=== PATIENT | male | born 1945 | race Caucasian/White ===

== ENCOUNTER 2017-02-04 10:45 | Emergency (ER) | payer MEDICARE ==
--- NOTE | 2017-02-04 12:22 | DIAGNOSTIC IMAGING REPORT ---
PROCEDURE: XR CHEST 2 VIEW INDICATION: CHEST PAIN TECHNIQUE: PA and lateral view. COMPARISON: None. FINDINGS: 2 cm right upper lobe opacity. Cardiovascular structures are normal. Chronic mild L1 compression fracture. IMPRESSION: 1. 2.0 cm right upper lobe pulmonary nodule. Recommend CT scan with contrast. 2. Results discussed with Dr. Bernardo
--- NOTE | 2017-02-04 13:57 | DIAGNOSTIC IMAGING REPORT ---
PROCEDURE: CTA THORAX WITH CONTRAST INDICATION: SHORTNESS OF BREATH TECHNIQUE: 84 ml of Isovue 370 was injected intravenously and axial images were obtained of the entire thorax with 3D sagittal and coronal MIP reconstructions. COMPARISON: Chest x-ray 02/04/2017. FINDINGS: No evidence of pulmonary emboli. Moderate emphysema. 2.2 cm spiculated posterior right upper lobe nodule abutting the major fissure with some retraction. There is no adenopathy or effusion. Mild bronchial wall thickening consistent with bronchitis with some occluded left lower lobe bronchi. No thoracic dissection or aneurysm. Coronary atherosclerosis. Heart size is normal. Visualized upper abdomen is unremarkable. Moderate degenerative changes of the spine with chronic lower thoracic spine mild compression fractures. IMPRESSION: 1. No evidence of pulmonary emboli, aortic dissection or aneurysm 2. Emphysema 3. 2.2 cm spiculated right upper lobe nodule most consistent with a neoplasm. Recommend CT guided biopsy for confirmation and further evaluation. 4. Bronchitis.
--- NOTE | 2017-02-04 14:03 | ED NURSING NOTES ---
Clinical Report - Nurses [facility] [address] [place] [address] 02/04/2017 10:48 Patient: ERYN HERBERT TRIAGE Triage time 10:57. Acuity: LEVEL 3. Chief Complaint: CHEST PAIN. --11:05 Ran Cabrera R.N. 10:57 02/04/17. BP: 190/106. HR: 72. RR: 20. O2 saturation: 99%. Temp: 98.4 F. Pain level now 02/26. --11:05 Ran Cabrera R.N. Weight: 58.9 kg stated. Height/Length: 68 inches Per Patient. BMI: 19.7. --11:05 Ran Cabrera R.N. Medications None. --10:58 Ran Cabrera R.N. Allergies Penicillins. --10:58 Ran Cabrera R.N. History Arrived by private vehicle. Historian: patient. This started yesterday. No difficulty breathing. Treatment STORE OPERATIONS SPECIALIST: None. SOCIAL HX: Current every day heavy tobacco smoker- 1 pack per day. Alcohol use; consumes six beers. Patient is a longstanding alcoholic. FALL RISK ASSESSMENT: Fall risk assessment completed. No fall risk identified. NUTRITIONAL RISK ASSESSMENT: The nutritional risk assessment revealed no deficiencies. FUNCTIONAL ASSESSMENT: Functional assessment: no impairments noted. LEARNING NEEDS ASSESSMENT: The learning needs assessment revealed no barriers. --11:05 Ran Cabrera R.N. PROBLEMS: Pneumonia. Meningitis. DVT - Deep Venous Thrombosis. COPD - Chronic Obstructive Pulmonary Disease. Alcoholism. Stomach Ulcer. --11:02 Ran Cabrera R.N. Interventions ID band on patient. To room. --11:05 Ran Cabrera R.N. PHYSICAL ASSESSMENT GENERAL / NEURO / PSYCH: Alert. Oriented X 4. Appears in no acute distress. RESPIRATORY: Respirations not labored. ( Has coarse breath sounds in right lower lung and pain on deep inspiration). CVS: Normal sinus rhythm noted. Heart sounds within normal limits. GI / : Abdomen soft. SKIN: Skin is warm and dry. --11:07 Ran Cabrera R.N. NURSING PROGRESS NOTES Call light placed in reach. Bed placed in lowest position. --11:07 Ran Cabrera R.N. 11:10 02/04/2017 Site #1 started via IV in the right antecubital space with an 20g angiocath; one attempt. Blood drawn: rainbow set. Labeled in the presence of the patient and sent to the lab. --11:10 Ines Luciano R.N. The initial plan of care for this patient has been created This plan of care was discussed with the patient. bar machine operator, pulse oximeter and NIBP monitor placed on patient. Patient ID band checked for patient name, birthdate and medical record number: patient confirmed. Blood samples drawn by nurse per protocol ; labeled in presence of the patient and sent to lab: rainbow set. Patient gowned. Reassurance given. Warming measures not performed. Patient identifiers checked. Call light placed in reach. Side rails up x 1. Bed placed in lowest position. Brakes of bed on. Patient ready for evaluation- ED physician notified. --11:11 Ines Luciano R.N. EKG time: (1101). EKG was ordered, performed by a tech and shown to the ED physician. --11:20 Sarah Bruno ER Tech1 11:15 02/04/17. BP: 189/83 (regular adult cuff) taken on the left arm, via an automated monitor, while lying. HR: 67. RR: 16. O2 saturation: 99%. Pain level now: 5/10. --11:40 Ines Luciano R.N. Cardiac rhythm: normal sinus rhythm. --11:40 Ines Luciano R.N. Cardiac rhythm: normal sinus rhythm. bar machine operator, pulse oximeter and NIBP monitor placed on patient. Reassurance given. Overall patient status- he states feels better. HEENT: Denies headache. RESPIRATORY: Denies difficulty breathing. CVS: Denies chest pain. Normal sinus rhythm noted. GI / : Denies nausea. --11:41 Ines Luciano R.N. 11:40 02/04/17. BP: 176/77. HR: 67. RR: 18. O2 saturation: 98%. Pain level now: 0/10. --11:41 Ines Luciano R.N. 11:45 02/04/2017 GI Cocktail (Magnesium-Aluminum) PO 50 mL given. Allergies verified and confirmed 5 rights. --11:45 Ines Luciano R.N. 12:56 02/04/2017 GI Cocktail PO Response: no adverse reaction. --12:56 Ines Luciano R.N. Cardiac rhythm: normal sinus rhythm. bar machine operator, pulse oximeter and NIBP monitor placed on patient. Reassurance given. The patient is calm and resting quietly. Overall patient status is the same- he states feels the same. ( Pt aware of waiting on a CTA- emotional support provided). RESPIRATORY: Denies difficulty breathing. CVS: The patient reports chest pain. GI / : Denies nausea. Call light placed in reach. --13:00 Ines Luciano R.N. 12:59 02/04/17. BP: 173/91 (regular adult cuff) taken on the left arm, via an automated monitor, while sitting. HR: 66. RR: 16. O2 saturation: 98% on room air. Temp: 97.4 F (oral). Pain level now: 0/10. --13:00 Ines Luciano R.N. DISPOSITION / DISCHARGE 14:00 02/04/17. BP: 174/85. HR: 68. RR: 17. O2 saturation: 99% on room air. Temp: 98.5 F. Pain level now: 2/10. --14:39 Fran Junior R.N. Departure time: 1405. --14:39 Fran Junior R.N. 14:05. Condition at departure: improved. No learning barriers present. Discharge instructions provided and reviewed with the patient and family. Reviewed medication(s) (prescription given to pt). Reviewed referral to family practice for followup (in one week for lung nodule found on X-ray). Reviewed need to stop smoking- provided smoking cessation counseling. Patient verbalized understanding. Written instructions provided in Macedonian. The patient was discharged by the physician. He was discharged home and accompanied by family. He left the Emergency Department ambulatory and via private vehicle. Family member driving. --14:42 Fran Junior R.N. Locked/Released at 02/04/2017 14:42 by Fran Junior R.N.
--- NOTE | 2017-02-04 14:03 | ED CLINICAL REPORT ---
Clinical Report - Physicians/Mid Levels [facility] [address] [place] [address] 02/04/2017 10:48 Patient: ERYN HERBERT Time Seen: 11:19 Feb 04 2017. Arrived- By private vehicle. Historian- patient. CPT: ER phys charges level 5 plus (#[id number]). EKG interpretation (#[id number]). HISTORY OF PRESENT ILLNESS Chief Complaint: CHEST PAIN. It is described as aching and "pain" and it is described as located in the right chest area. At its maximum, severity described as moderate. When seen in the E.D., severity described as moderate. Modifying factors- worsened by supine position. Relieved by upright position. 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 and is still present. Onset during light activity. No nausea, vomiting, difficulty breathing or diaphoresis. Similar symptoms previously: None. Recent medical care: Not recently seen/assessed. REVIEW OF SYSTEMS No fever, chills, cough, pedal edema or calf pain. No fainting episodes, sore throat or throat, abdominal pain or black stools. No difficulty with urination or urination, skin rash or rash or enlarged lymph nodes. No joint pain, bloody stools, hematuria, dizziness or weakness. No diabetic symptoms, easy bruising or symptoms of hypothyroidism. No difficulty walking. All systems otherwise negative, except as recorded above. PAST HISTORY Pneumonia. Meningitis. DVT - Deep Venous Thrombosis. COPD - Chronic Obstructive Pulmonary Disease. Alcoholism. Stomach Ulcer. Medications: None. Allergies: Penicillins. SOCIAL HISTORY Heavy tobacco smoker (cigarette)- 1 pack per day. Heavy alcohol use. Patient is a longstanding alcoholic. No drug use. ADDITIONAL NOTES The nursing notes have been reviewed. PHYSICAL EXAM Vital Signs: 02/04/2017 10:57 BP: 190/106. HR: 72. RR: 20. O2 saturation: 99%. Temp: 98.4 F. Appearance: Alert. No acute distress. Eyes: Eyes normal inspection. ENT: Pharynx normal. Neck: Normal inspection. CVS: Normal heart rate and rhythm. Heart sounds normal. Pulses normal. Respiratory: No respiratory distress. Breath sounds normal. Chest nontender. Abdomen: Soft. Moderate tenderness in the epigastric area. Bowel sounds normal. Back: Normal external inspection. No CVA tenderness. Skin: Skin warm. Normal skin color. No rash. Extremities: Extremities exhibit normal ROM. No lower extremity edema. Neuro: Oriented X 3. No motor deficit. No sensory deficit. Reflexes normal. LABS, X-RAYS, AND EKG EKG: Normal sinus rhythm. Normal P waves. Normal FABRIZIO. Normal QRS complex. Normal axis. Normal ST and T waves. Prior EKG unavailable. The study has been interpreted contemporaneously. The study has been independently viewed by me. The EKG appears to be a good tracing. Chest X-ray: Small, right-sided parenchymal mass present (2 in the RUL.). Consistent with tumor. Normal heart size. Mediastinum normal. Great vessels normal. Views: PA and lateral. Technique: good. The X-rays were independently viewed by me, interpreted by the radiologist and discussed with the radiologist. Chest CT: (Nodule RUL. No infiltrate , no PE or acute findings.). Chest CT performed with contrast. The study was independently viewed by me, interpreted by the radiologist and discussed with the radiologist. Laboratory Tests: CBC w Diff: (SHANNON: 02/04/2017 11:10) ( MsgRcvd 02/04/2017 11:54) Final results Test Result Flag Units (Reference) WHITE BLOOD COUNT 10.6 K/uL (4.5-11.5) RED BLOOD COUNT 4.80 M/uL (4.50-5.90) HEMOGLOBIN 14.6 gm/dL (13.5-17.5) HEMATOCRIT 44.0 % (41.0-53.0) MEAN CELL VOLUME 92 fL (80-100) MEAN CORPUSCULAR HGB 31 pg (26-34) MEAN CORPUSCULAR HGB CONC 33 g/dL (31-37) RED CELL DISTRIBUTION WIDTH 15.5 H % (11.6-14.8) PLATELET COUNT 365 K/uL (150-400) NEUTROPHIL % 60.6 % (50-75) LYMPH % 28.5 % (25-40) MONO % 7.8 % (3-14) EOSINOPHIL % 1.3 % (0-4) BASOPHIL % 1.8 % (0-2) SED RATE WESTERGREN 6 mm/hr (0-20) [id number]: (SHANNON: 02/04/2017 11:30) ( [facility] 02/04/2017 12:18) Final results Test Result Flag Units (Reference) D-DIMER QUANTITATIVE 0.72 H ug/mLFEU (0.27-0.52) The primary value of this quantitative assay relates toits negative predictive value (i.e. exclusion) of pulmonaryembolism/deep vein thrombosis/DIC.Elevated levels of d-dimer may also occur with:, age, cancer, inflammation, liver disease,post-op, infection, hematoma, coronary disease, peripheralarteriopathy, bleeding disorders and thrombolytic treatment.Results should be correlated with other clinical andradiological data.Testing Methodology: Latex Immunoassay Lipase: (SHANNON: 02/04/2017 11:10) ( [facility] 02/04/2017 13:34) Final results Test Result Flag Units (Reference) LIPASE 93 U/L (73-393) AMYLASE 62 U/L (25-115) CHEM 13 PANEL: (SHANNON: 02/04/2017 11:10) ( [facility] 02/04/2017 12:05) Final results Test Result Flag Units (Reference) GLUCOSE 100 mg/dL (70-110) BUN 12 mg/dL (7-18) CREATININE 0.8 mg/dL (0.6-1.3) Estimated GFR >60 mL/min Estimated GFR- >60 mL/min Note: Persistent reduction over 3 months in eGFR<60 mL/min/1.73 m2 defines CKD. Patients with eGFR values>=60 mL/min/1.73 m2 may also have CKD if evidence ofpersistent proteinuria. Additional information may be foundat www.kidney.org. SODIUM 138 mmol/L (136-145) POTASSIUM 3.7 mmol/L (3.5-5.1) CHLORIDE 102 mmol/L (98-107) CARBON DIOXIDE 29 mmol/L (21-32) CALCIUM 9.0 mg/dL (8.5-10.1) TOTAL PROTEIN 7.4 g/dL (6.4-8.2) ALBUMIN 3.3 g/dL (3.3-5.0) BILIRUBIN, TOTAL 0.5 mg/dL (0.0-1.0) ALKALINE PHOSPHATASE 91 U/L (46-116) AST (SGOT) 18 U/L (15-37) ALT (SGPT) 10 L U/L (12-78) MAGNESIUM 1.9 mg/dL (1.8-2.4) CPK 42 U/L (24-260) TROPONIN I 0.05 ng/mL (0.00-1.5) TROPONIN REFERENCE RANGE:<0.1 NEGATIVE0.1-1.5 INDETERMINANT>1.5 POSITIVE C-REACTIVE PROTEIN 0.6 mg/dL (0.0-0.9) . PROGRESS AND PROCEDURES Course of Care: 12:59 02/04/17. Pt reports going to x-ray and when he turned his trunk he developed a severe stabbing pain in the same area. Also reports running out of energy over the past few days. With hx of DVT, pulmonary nodules , elevated d-dimer and CP will check CTA. Patient/family counseled. Disposition: Discharged. CLINICAL IMPRESSION Atypical chest pain .12 lead EKG performed. Nodules in the right upper lobe. INSTRUCTIONS No strenuous activity. Rest. Avoid stimulants (such as cigarettes, coffee, cold medicines, sinus medicines, street drugs). Warnings: Further evaluation is necessary. GENERAL WARNINGS: Return or contact your physician immediately if your condition worsens or changes unexpectedly, if not improving as expected, or if other problems arise. Prescription Medications: Hydrocodone/APAP 5mg / 325mg: take 1 orally every 6 hours as needed for pain. Dispense ten (10). No refill. Robaxin 750 mg: Take 2 orally every 6 hours as needed for muscle spasm. Dispense thirty (30). No refills. Substitution is permissible. Prilosec 40 mg capsules: take 1 capsule orally every day for 10 days. Dispense ten (10). No refill. Substitution is permissible. Carafate 1g in 30cc water slurry ac, hs # 40. Follow-up: Follow up with your doctor in one week. Call for an appointment. Reason for referral: Lung nodules and CP. Understanding of the discharge instructions verbalized by patient and family. (Electronically signed by Jacob Bernardo MD 02/05/2017 21:25)
--- NOTE | 2017-02-04 14:03 | ED CLINICAL REPORT ---
Clinical Report - Physicians/Mid Levels [facility] [address] [place] [address] 02/04/2017 10:48 Patient: ERYN HERBERT Time Seen: 11:19 Feb 04 2017. Arrived- By private vehicle. Historian- patient. CPT: ER phys charges level 5 plus (#[id number]). EKG interpretation (#[id number]). HISTORY OF PRESENT ILLNESS Chief Complaint: CHEST PAIN. It is described as aching and "pain" and it is described as located in the right chest area. At its maximum, severity described as moderate. When seen in the E.D., severity described as moderate. Modifying factors- worsened by supine position. Relieved by upright position. 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 Onset during light activity. No nausea, vomiting, difficulty breathing or diaphoresis. Similar symptoms previously: None. Recent medical care: Not recently seen/assessed. REVIEW OF SYSTEMS No fever, chills, cough, pedal edema or calf pain. No fainting episodes, sore throat or throat, abdominal pain or black stools. No difficulty with urination or urination, skin rash or rash or enlarged lymph nodes. No joint pain, bloody stools, hematuria, dizziness or weakness. No diabetic symptoms, easy bruising or symptoms of hypothyroidism. No difficulty walking. All systems otherwise negative, except as recorded above. PAST HISTORY Pneumonia. Meningitis. DVT - Deep Venous Thrombosis. COPD - Chronic Obstructive Pulmonary Disease. Alcoholism. Stomach Ulcer. Medications: None. Allergies: Penicillins. SOCIAL HISTORY Heavy tobacco smoker (cigarette)- 1 pack per day. Heavy alcohol use. Patient is a longstanding alcoholic. No drug use. ADDITIONAL NOTES The nursing notes have been reviewed. PHYSICAL EXAM Vital Signs: 02/04/2017 10:57 BP: 190/106. HR: 72. RR: 20. O2 saturation: 99%. Temp: 98.4 F. Appearance: Alert. No acute distress. Eyes: Eyes normal inspection. ENT: Pharynx normal. Neck: Normal inspection. CVS: Normal heart rate and rhythm. Heart sounds normal. Pulses normal. Respiratory: No respiratory distress. Breath sounds normal. Chest nontender. Abdomen: Soft. Moderate tenderness in the epigastric area. Bowel sounds normal. Back: Normal external inspection. No CVA tenderness. Skin: Skin warm. Normal skin color. No rash. Extremities: Extremities exhibit normal ROM. No lower extremity edema. Neuro: Oriented X 3. No motor deficit. No sensory deficit. Reflexes normal. LABS, X-RAYS, AND EKG EKG: Normal sinus rhythm. Normal P waves. Normal FABRIZIO. Normal QRS complex. Normal axis. Normal ST and T waves. Prior EKG unavailable. The study has been interpreted contemporaneously. The study has been independently viewed by me. The EKG appears to be a good tracing. Chest X-ray: Small, right-sided parenchymal mass present (2 in the RUL.). Consistent with tumor. Normal heart size. Mediastinum normal. Great vessels normal. Views: PA and lateral. Technique: good. The X-rays were independently viewed by me, interpreted by the radiologist and discussed with the radiologist. Chest CT: (Nodule RUL. No infiltrate , no PE or acute findings.). Chest CT performed with contrast. The study was independently viewed by me, interpreted by the radiologist and discussed with the radiologist. Laboratory Tests: CBC w Diff: (SHANNON: 02/04/2017 11:10) ( MsgRcvd 02/04/2017 11:54) Final results Test Result Flag Units (Reference) WHITE BLOOD COUNT 10.6 K/uL (4.5-11.5) RED BLOOD COUNT 4.80 M/uL (4.50-5.90) HEMOGLOBIN 14.6 gm/dL (13.5-17.5) HEMATOCRIT 44.0 % (41.0-53.0) MEAN CELL VOLUME 92 fL (80-100) MEAN CORPUSCULAR HGB 31 pg (26-34) MEAN CORPUSCULAR HGB CONC 33 g/dL (31-37) RED CELL DISTRIBUTION WIDTH 15.5 H % (11.6-14.8) PLATELET COUNT 365 K/uL (150-400) NEUTROPHIL % 60.6 % (50-75) LYMPH % 28.5 % (25-40) MONO % 7.8 % (3-14) EOSINOPHIL % 1.3 % (0-4) BASOPHIL % 1.8 % (0-2) SED RATE WESTERGREN 6 mm/hr (0-20) [id number]: (SHANNON: 02/04/2017 11:30) ( [facility] 02/04/2017 12:18) Final results Test Result Flag Units (Reference) D-DIMER QUANTITATIVE 0.72 H ug/mLFEU (0.27-0.52) The primary value of this quantitative assay relates toits negative predictive value (i.e. exclusion) of pulmonaryembolism/deep vein thrombosis/DIC.Elevated levels of d-dimer may also occur with:, age, cancer, inflammation, liver disease,post-op, infection, hematoma, coronary disease, peripheralarteriopathy, bleeding disorders and thrombolytic treatment.Results should be correlated with other clinical andradiological data.Testing Methodology: Latex Immunoassay Lipase: (SHANNON: 02/04/2017 11:10) ( [facility] 02/04/2017 13:34) Final results Test Result Flag Units (Reference) LIPASE 93 U/L (73-393) AMYLASE 62 U/L (25-115) CHEM 13 PANEL: (SHANNON: 02/04/2017 11:10) ( [facility] 02/04/2017 12:05) Final results Test Result Flag Units (Reference) GLUCOSE 100 mg/dL (70-110) BUN 12 mg/dL (7-18) CREATININE 0.8 mg/dL (0.6-1.3) Estimated GFR >60 mL/min Estimated GFR- >60 mL/min Note: Persistent reduction over 3 months in eGFR<60 mL/min/1.73 m2 defines CKD. Patients with eGFR values>=60 mL/min/1.73 m2 may also have CKD if evidence ofpersistent proteinuria. Additional information may be foundat www.kidney.org. SODIUM 138 mmol/L (136-145) POTASSIUM 3.7 mmol/L (3.5-5.1) CHLORIDE 102 mmol/L (98-107) CARBON DIOXIDE 29 mmol/L (21-32) CALCIUM 9.0 mg/dL (8.5-10.1) TOTAL PROTEIN 7.4 g/dL (6.4-8.2) ALBUMIN 3.3 g/dL (3.3-5.0) BILIRUBIN, TOTAL 0.5 mg/dL (0.0-1.0) ALKALINE PHOSPHATASE 91 U/L (46-116) AST (SGOT) 18 U/L (15-37) ALT (SGPT) 10 L U/L (12-78) MAGNESIUM 1.9 mg/dL (1.8-2.4) CPK 42 U/L (24-260) TROPONIN I 0.05 ng/mL (0.00-1.5) TROPONIN REFERENCE RANGE:<0.1 NEGATIVE0.1-1.5 INDETERMINANT>1.5 POSITIVE C-REACTIVE PROTEIN 0.6 mg/dL (0.0-0.9) . PROGRESS AND PROCEDURES Course of Care: 12:59 02/04/17. Pt reports going to x-ray and when he turned his trunk he developed a severe stabbing pain in the same area. Also reports running out of energy over the past few days. With hx of DVT, pulmonary nodules , elevated d-dimer and CP will check CTA. Patient/family counseled. Disposition: Discharged. CLINICAL IMPRESSION Atypical chest pain .12 lead EKG performed. Nodules in the right upper lobe. INSTRUCTIONS No strenuous activity. Rest. Avoid stimulants (such as cigarettes, coffee, cold medicines, sinus medicines, street drugs). Warnings: Further evaluation is necessary. GENERAL WARNINGS: Return or contact your physician immediately if your condition worsens or changes unexpectedly, if not improving as expected, or if other problems arise. Prescription Medications: Hydrocodone/APAP 5mg / 325mg: take 1 orally every 6 hours as needed for pain. Dispense ten (10). No refill. Robaxin 750 mg: Take 2 orally every 6 hours as needed for muscle spasm. Dispense thirty (30). No refills. Substitution is permissible. Prilosec 40 mg capsules: take 1 capsule orally every day for 10 days. Dispense ten (10). No refill. Substitution is permissible. Carafate 1g in 30cc water slurry ac, hs # 40. Follow-up: Follow up with your doctor in one week. Call for an appointment. Reason for referral: Lung nodules and CP. Understanding of the discharge instructions verbalized by patient and family. (Electronically signed by Jacob Bernardo MD 02/05/2017 21:25)
--- NOTE | 2017-02-04 14:03 | ED ORDER SUMMARY ---
..... Patient: ERYN HERBERT OrderSheet [facility] VisitID: [id number] [place] [address] 72y, M Registration Date/Time: 02/04/2017 ORDER SHEET Weight: 58.9 kg (stated) Allergies: Penicillins GENERAL ORDERS: Cardiac Panel Stat (11:02/04/2017 EHassan R.N. per protocol) (Ack 11:23 PWeiler ER Tech1) (11:27 PWeiler ER Tech1) Angle Furnaceman (Continuous) (11:02/04/2017 Maria G PAEZ) (11:39 EHassan R.N.) Chest 2V Urgent (11:02/04/2017 Maria G PAEZ) (Ack 11:30 PWeiler ER Tech1) (11:56 PWeiler ER Tech1) ESR Urgent (11:02/04/2017 Maria G PAEZ) (Ack 11:30 PWeiler ER Tech1) (11:39 EHassan R.N.) CRP Urgent (11:02/04/2017 Maria G PAEZ) (Ack 11:30 PWeiler ER Tech1) (11:39 EHassan R.N.) D-Dimer Urgent (11:02/04/2017 Maria G PAEZ) (Ack 11:30 PWeihakeem ER Tech1) (11:39 EHassan R.N.) Pulse oximeter (11:02/04/2017 Maria G PAEZ) (11:39 EHassan R.N.) EKG - ER Stat (11:02/04/2017 Maria G PAEZ) (Ack 11:30 PWeihakeem ER Tech1) (11:39 EHassan R.N.) CTA Thorax w Cont (No) (NORMAL) Urgent (13:02 02/04/2017 Maria G PAEZ) (Ack 13:03 PWeiler ER Tech1) (13:30 PWeiler ER Tech1) Lipase Urgent (13:04 02/04/2017 Maria G PAEZ) (Ack 13:05 PWeiler ER Tech1) (13:18 EHassan R.N.) Amylase Urgent (13:04 02/04/2017 Maria G PAEZ) (Ack 13:05 PWeiler ER Tech1) (13:18 Marianne ArthurNEwelina) MEDICATION ORDERS: GI Cocktail WHITE PO 50 mL (NOW) (11:28 02/04/2017 Maria G PAEZ) (11:45 Marianne R.N.) IV FLUIDS: IV Saline Lock (11:02/04/2017 Maria G PAEZ) (11:39 Marianne R.N.) ORDER SHEET NOTES: [Electronically signed by Fran Junior R.N. (14:42 02/04/2017)] [Electronically signed by Jacob Bernardo MD (21:25 02/05/2017)] [Electronically locked/signed by Fran Junior R.N. (14:42 02/04/2017)]
--- NOTE | 2017-02-04 14:03 | ED NURSING NOTES ---
Clinical Report - Nurses [facility] [address] [place] [address] 02/04/2017 10:48 Patient: ERYN HERBERT TRIAGE Triage time 10:57. Acuity: LEVEL 3. Chief Complaint: CHEST PAIN. --11:05 Ran Cabrera R.N. 10:57 02/04/17. BP: 190/106. HR: 72. RR: 20. O2 saturation: 99%. Temp: 98.4 F. Pain level now 02/26. --11:05 Ran Cabrera R.N. Weight: 58.9 kg stated. Height/Length: 68 inches Per Patient. BMI: 19.7. --11:05 Ran Cabrera R.N. Medications None. --10:58 Ran Cabrera R.N. Allergies Penicillins. --10:58 Ran Cabrera R.N. History Arrived by private vehicle. Historian: patient. This started yesterday. No difficulty breathing. Treatment DEPUTY REGISTER OF DEEDS: None. SOCIAL HX: Current every day heavy tobacco smoker- 1 pack per day. Alcohol use; consumes six beers. Patient is a longstanding alcoholic. FALL RISK ASSESSMENT: Fall risk assessment completed. No fall risk identified. NUTRITIONAL RISK ASSESSMENT: The nutritional risk assessment revealed no deficiencies. FUNCTIONAL ASSESSMENT: Functional assessment: no impairments noted. LEARNING NEEDS ASSESSMENT: The learning needs assessment revealed no barriers. --11:05 Ran Cabrera R.N. PROBLEMS: Pneumonia. Meningitis. DVT - Deep Venous Thrombosis. COPD - Chronic Obstructive Pulmonary Disease. Alcoholism. Stomach Ulcer. --11:02 Ran Cabrera R.N. Interventions ID band on patient. To room. --11:05 Ran Cabrera R.N. PHYSICAL ASSESSMENT GENERAL / NEURO / PSYCH: Alert. Oriented X 4. Appears in no acute distress. RESPIRATORY: Respirations not labored. ( Has coarse breath sounds in right lower lung and pain on deep inspiration). CVS: Normal sinus rhythm noted. Heart sounds within normal limits. GI / : Abdomen soft. SKIN: Skin is warm and dry. --11:07 Ran Cabrera R.N. NURSING PROGRESS NOTES Call light placed in reach. Bed placed in lowest position. --11:07 Ran Cabrera R.N. 11:10 02/04/2017 Site #1 started via IV in the right antecubital space with an 20g angiocath; one attempt. Blood drawn: rainbow set. Labeled in the presence of the patient and sent to the lab. --11:10 Ines Luciano R.N. The initial plan of care for this patient has been created This plan of care was discussed with the patient. interim controller, pulse oximeter and NIBP monitor placed on patient. Patient ID band checked for patient name, birthdate and medical record number: patient confirmed. Blood samples drawn by nurse per protocol ; labeled in presence of the patient and sent to lab: rainbow set. Patient gowned. Reassurance given. Warming measures not performed. Patient identifiers checked. Call light placed in reach. Side rails up x 1. Bed placed in lowest position. Brakes of bed on. Patient ready for evaluation- ED physician notified. --11:11 Ines Luciano R.N. EKG time: (1101). EKG was ordered, performed by a tech and shown to the ED physician. --11:20 Sarah Bruno ER Tech1 11:15 02/04/17. BP: 189/83 (regular adult cuff) taken on the left arm, via an automated monitor, while lying. HR: 67. RR: 16. O2 saturation: 99%. Pain level now: 5/10. --11:40 Ines Luciano R.N. Cardiac rhythm: normal sinus rhythm. --11:40 Ines Luciano R.N. Cardiac rhythm: normal sinus rhythm. interim controller, pulse oximeter and NIBP monitor placed on patient. Reassurance given. Overall patient status- he states feels better. HEENT: Denies headache. RESPIRATORY: Denies difficulty breathing. CVS: Denies chest pain. Normal sinus rhythm noted. GI / : Denies nausea. --11:41 Ines Luciano R.N. 11:40 02/04/17. BP: 176/77. HR: 67. RR: 18. O2 saturation: 98%. Pain level now: 0/10. --11:41 Ines Luciano R.N. 11:45 02/04/2017 GI Cocktail (Magnesium-Aluminum) PO 50 mL given. Allergies verified and confirmed 5 rights. --11:45 Ines Luciano R.N. 12:56 02/04/2017 GI Cocktail PO Response: no adverse reaction. --12:56 Ines Luciano R.N. Cardiac rhythm: normal sinus rhythm. interim controller, pulse oximeter and NIBP monitor placed on patient. Reassurance given. The patient is calm and resting quietly. Overall patient status is the same- he states feels the same. ( Pt aware of waiting on a CTA- emotional support provided). RESPIRATORY: Denies difficulty breathing. CVS: The patient reports chest pain. GI / : Denies nausea. Call light placed in reach. --13:00 Ines Luciano R.N. 12:59 02/04/17. BP: 173/91 (regular adult cuff) taken on the left arm, via an automated monitor, while sitting. HR: 66. RR: 16. O2 saturation: 98% on room air. Temp: 97.4 F (oral). Pain level now: 0/10. --13:00 Ines Luciano R.N. DISPOSITION / DISCHARGE 14:00 02/04/17. BP: 174/85. HR: 68. RR: 17. O2 saturation: 99% on room air. Temp: 98.5 F. Pain level now: 2/10. --14:39 Fran Junior R.N. Departure time: 1405. --14:39 Fran Junior R.N. 14:05. Condition at departure: improved. No learning barriers present. Discharge instructions provided and reviewed with the patient and family. Reviewed medication(s) (prescription given to pt). Reviewed referral to family practice for followup (in one week for lung nodule found on X-ray). Reviewed need to stop smoking- provided smoking cessation counseling. Patient verbalized understanding. Written instructions provided in Turkmen. The patient was discharged by the physician. He was discharged home and accompanied by family. He left the Emergency Department ambulatory and via private vehicle. Family member driving. --14:42 Fran Junior R.N. Locked/Released at 02/04/2017 14:42 by Fran Junior R.N.
--- NOTE | 2017-02-04 14:03 | ED ORDER SUMMARY ---
..... Patient: ERYN HERBERT OrderSheet [facility] VisitID: [id number] [place] [address] 72y, M Registration Date/Time: 02/04/2017 ORDER SHEET Weight: 58.9 kg (stated) Allergies: Penicillins GENERAL ORDERS: Cardiac Panel Stat (11:02/04/2017 EHassan R.N. per protocol) (Ack 11:23 PWeiler ER Tech1) (11:27 PWeiler ER Tech1) Applications Project Manager (Continuous) (11:02/04/2017 Maria G PAEZ) (11:39 EHassan R.N.) Chest 2V Urgent (11:02/04/2017 Maria G PAEZ) (Ack 11:30 PWeiler ER Tech1) (11:56 PWeiler ER Tech1) ESR Urgent (11:02/04/2017 Maria G PAEZ) (Ack 11:30 PWeiler ER Tech1) (11:39 EHassan R.N.) CRP Urgent (11:02/04/2017 Maria G PAEZ) (Ack 11:30 PWeiler ER Tech1) (11:39 EHassan R.N.) D-Dimer Urgent (11:02/04/2017 Maria G PAEZ) (Ack 11:30 PWeihakeem ER Tech1) (11:39 EHassan R.N.) Pulse oximeter (11:02/04/2017 Maria G PAEZ) (11:39 EHassan R.N.) EKG - ER Stat (11:02/04/2017 Maria G PAEZ) (Ack 11:30 PWeihakeem ER Tech1) (11:39 EHassan R.N.) CTA Thorax w Cont (No) (NORMAL) Urgent (13:02 02/04/2017 Maria G PAEZ) (Ack 13:03 PWeiler ER Tech1) (13:30 PWeiler ER Tech1) Lipase Urgent (13:04 02/04/2017 Maria G PAEZ) (Ack 13:05 PWeiler ER Tech1) (13:18 EHassan R.N.) Amylase Urgent (13:04 02/04/2017 Maria G PAEZ) (Ack 13:05 PWeiler ER Tech1) (13:18 Marianne ArthurNEwelina) MEDICATION ORDERS: GI Cocktail WHITE PO 50 mL (NOW) (11:28 02/04/2017 Maria G PAEZ) (11:45 Marianne R.N.) IV FLUIDS: IV Saline Lock (11:02/04/2017 Maria G PAEZ) (11:39 Marianne R.N.) ORDER SHEET NOTES: [Electronically signed by Fran Junior R.N. (14:42 02/04/2017)] [Electronically signed by Jacob Bernardo MD (21:25 02/05/2017)] [Electronically locked/signed by Fran Junior R.N. (14:42 02/04/2017)]
--- NOTE | 2017-02-05 21:25 | ED DISCHARGE INSTRUCTIONS ---
Patient: ERYN HERBERT General Instructions [facility] VisitID: [id number] [place] [address] 72y, M Registration Date/Time: 02/04/2017 Atypical chest pain .12 lead EKG performed. Nodules in the right upper lobe. INSTRUCTIONS No strenuous activity. Rest. Avoid stimulants (such as cigarettes, coffee, cold medicines, sinus medicines, street drugs). Warnings: Further evaluation is necessary. GENERAL WARNINGS: Return or contact your physician immediately if your condition worsens or changes unexpectedly, if not improving as expected, or if other problems arise. Prescription Medications: Hydrocodone/APAP 5mg / 325mg: take 1 orally every 6 hours as needed for pain. Dispense ten (10). No refill. Robaxin 750 mg: Take 2 orally every 6 hours as needed for muscle spasm. Dispense thirty (30). No refills. Substitution is permissible. Prilosec 40 mg capsules: take 1 capsule orally every day for 10 days. Dispense ten (10). No refill. Substitution is permissible. Carafate 1g in 30cc water slurry ac, hs # 40. Follow-up: Follow up with your doctor in one week. Call for an appointment. Reason for referral: Lung nodules and CP. Understanding of the discharge instructions verbalized by patient and family. ADDITIONAL INFORMATION Chest Pain, Noncardiac Based on your visit today, the exact cause of your chest pain is not certain. Your condition does not seem serious and your pain does not appear to be coming from your heart. However, sometimes the signs of a serious problem take more time to appear. Therefore, please watch for the warning signs listed below. Home Care: Rest today and avoid strenuous activity. Take any prescribed medicine as directed. Follow Up with your doctor or this facility as instructed or if you do not start to feel better within 24 hours. Get Prompt Medical Attention if any of the following occur: A change in the type of pain: if it feels different, becomes more severe, lasts longer, or begins to spread into your shoulder, arm, neck, jaw or back Shortness of breath or increased pain with breathing Cough with dark colored sputum (phlegm) or blood Weakness, dizziness, or fainting Fever of 100.4F (38C) or higher, or as directed by your healthcare provider Swelling, pain or redness in one leg Hydrocodone Bitartrate, Acetaminophen Oral tablet What is this medicine? ACETAMINOPHEN; HYDROCODONE (a set a JAYLA vitaly fen; david droe KOJordan done) is a pain reliever. It is used to treat mild to moderate pain. How should I use this medicine? Take this medicine by mouth. Swallow it with a full glass of water. Follow the directions on the prescription label. If the medicine upsets your stomach, take the medicine with food or milk. Do not take more than you are told to take. Talk to your adaptive physical education specialist regarding the use of this medicine in children. This medicine is not approved for use in children. What side effects may I notice from receiving this medicine? Side effects that you should report to your doctor or health direct care professional as soon as possible: allergic reactions like skin rash, itching or hives, swelling of the face, lips, or tongue breathing problems confusion feeling faint or lightheaded, falls stomach pain yellowing of the eyes or skin Side effects that usually do not require medical attention (report to your doctor or health direct care professional if they continue or are bothersome): nausea, vomiting stomach upset What may interact with this medicine? alcohol antihistamines isoniazid medicines for depression, anxiety, or psychotic disturbances medicines for sleep muscle relaxants naltrexone narcotic medicines (opiates) for pain phenobarbital ritonavir tramadol What if I miss a dose? If you miss a dose, take it as soon as you can. If it is almost time for your next dose, take only that dose. Do not take double or extra doses. Where should I keep my medicine? Keep out of the reach of children. This medicine can be abused. Keep your medicine in a safe place to protect it from theft. Do not share this medicine with anyone. Selling or giving away this medicine is dangerous and against the law. Store at room temperature between 15 and 30 degrees C (59 and 86 degrees F). Protect from light. Keep container tightly closed. Throw away any unused medicine after the expiration date. Discard unused medicine and used packaging carefully. Pets and children can be harmed if they find used or lost packages. What should I tell my health care provider before I take this medicine? They need to know if you have any of these conditions: brain tumor Crohn's disease, inflammatory bowel disease, or ulcerative colitis drink more than 3 alcohol-containing drinks per day drug abuse or addiction head injury heart or circulation problems kidney disease or problems going to the bathroom liver disease lung disease, asthma, or breathing problems an unusual or allergic reaction to acetaminophen, hydrocodone, other opioid analgesics, other medicines, foods, dyes, or preservatives or trying to get breast-feeding What should I watch for while using this medicine? Tell your doctor or health direct care professional if your pain does not go away, if it gets worse, or if you have new or a different type of pain. You may develop tolerance to the medicine. Tolerance means that you will need a higher dose of the medicine for pain relief. Tolerance is normal and is expected if you take the medicine for a long time. Do not suddenly stop taking your medicine because you may develop a severe reaction. Your body becomes used to the medicine. This does NOT mean you are addicted. Addiction is a behavior related to getting and using a drug for a non-medical reason. If you have pain, you have a medical reason to take pain medicine. Your doctor will tell you how much medicine to take. If your doctor wants you to stop the medicine, the dose will be slowly lowered over time to avoid any side effects. You may get drowsy or dizzy when you first start taking the medicine or change doses. Do not drive, use machinery, or do anything that may be dangerous until you know how the medicine affects you. Stand or sit up slowly. There are different types of narcotic medicines (opiates) for pain. If you take more than one type at the same time, you may have more side effects. Give your health care provider a list of all medicines you use. Your doctor will tell you how much medicine to take. Do not take more medicine than directed. Call emergency for help if you have problems breathing. The medicine will cause constipation. Try to have a bowel movement at least every 2 to 3 days. If you do not have a bowel movement for 3 days, call your doctor or health direct care professional. Too much acetaminophen can be very dangerous. Do not take Tylenol (acetaminophen) or medicines that contain acetaminophen with this medicine. Many non-prescription medicines contain acetaminophen. Always read the labels carefully. Omeprazole Magnesium Gastro-resistant tablet What is this medicine? OMEPRAZOLE (oh ME pray zol) prevents the production of acid in the stomach. It is used to treat the symptoms of heartburn. You can buy this medicine without a prescription. This product is not for long-term use, unless otherwise directed by your doctor or health direct care professional. How should I use this medicine? Take this medicine by mouth. Follow the directions on the product label. If you are taking this medicine without a prescription, take one tablet every day. Do not use for longer than 14 days or repeat a course of treatment more often than every 4 months unless directed by a doctor or healthcare professional. Take your dose at regular intervals every 24 hours. Swallow the tablet whole with a drink of water. Do not crush, break or chew. This medicine works best if taken on an empty stomach 30 minutes before breakfast. If you are using this medicine with the prescription of your doctor or healthcare professional, follow the directions you were given. Do not take your medicine more often than directed. Talk to your adaptive physical education specialist regarding the use of this medicine in children. Special care may be needed. What side effects may I notice from receiving this medicine? Side effects that you should report to your doctor or health direct care professional as soon as possible: allergic reactions like skin rash, itching or hives, swelling of the face, lips, or tongue bone, muscle or joint pain breathing problems chest pain or chest tightness dark yellow or brown urine diarrhea dizziness fast, irregular heartbeat feeling faint or lightheaded fever or sore throat muscle spasm palpitations redness, blistering, peeling or loosening of the skin, including inside the mouth seizures tremors unusual bleeding or bruising unusually weak or tired yellowing of the eyes or skin Side effects that usually do not require medical attention (Report these to your doctor or health direct care professional if they continue or are bothersome.): constipation dry mouth headache loose stools nausea What may interact with this medicine? Do not take this medicine with any of the following medications: atazanavir clopidogrel nelfinavir This medicine may also interact with the following medications: ampicillin certain medicines for anxiety or sleep certain medicines that treat or prevent blood clots like warfarin cyclosporine diazepam digoxin disulfiram iron salts phenytoin prescription medicine for fungal or yeast infection like itraconazole, ketoconazole, voriconazole saquinavir tacrolimus What if I miss a dose? If you miss a dose, take it as soon as you can. If it is almost time for your next dose, take only that dose. Do not take double or extra doses. Where should I keep my medicine? Keep out of the reach of children. Store at room temperature between 20 and 25 degrees C (68 and 77 degrees F). Protect from light and moisture. Throw away any unused medicine after the expiration date. What should I tell my health care provider before I take this medicine? They need to know if you have any of these conditions: black or bloody stools chest pain difficulty swallowing have had heartburn for over 3 months have heartburn with dizziness, lightheadedness or sweating liver disease stomach pain unexplained weight loss vomiting with blood wheezing an unusual or allergic reaction to omeprazole, other medicines, foods, dyes, or preservatives or trying to get breast-feeding What should I watch for while using this medicine? It can take several days before your heartburn gets better. Check with your doctor or health direct care professional if your condition does not start to get better, or if it gets worse. Do not treat diarrhea with over the counter products. Contact your doctor if you have diarrhea that lasts more than 2 days or if it is severe and watery. Do not treat yourself for heartburn with this medicine for more than 14 days in a row. You should only use this medicine for a 2-week treatment period once every 4 months. If your symptoms return shortly after your therapy is complete, or within the 4 month time frame, call your doctor or health direct care professional. You have been given the following additional information: Chest Pain, Noncardiac Hydrocodone Bitartrate, Acetaminophen Oral tablet Omeprazole Magnesium Gastro-resistant tablet No strenuous activity. Rest. (Electronically signed by Jacob Bernardo MD 02/05/2017 21:25)
--- NOTE | 2017-02-05 21:25 | ED MAR SUMMARY ---
..... Medication Administration Record [facility] [address] [place] [address] Patient: ERYN HERBERT Visit ID: [id number] 72y, M Weight: 58.9 kg Height/Length: 68 in BMI: 19.7 ALLERGIES: Penicillins Given 11:45 02/04/2017 Ines Luciano ROmero Medication Administered: GI COCKTAIL [PO] (MAGNESIUM-ALUMINUM), Dose: 50 mL PO. Medication Ordered: GI Cocktail WHITE PO 50 mL (NOW).
--- NOTE | 2017-02-05 21:25 | ED MED RECONCILIATION SUMMARY ---
Patient: ERYN HERBERT Medication Reconciliation Report [facility] VisitID: [id number] [address] [place] [address] 72y, M Registration Date/Time: 02/04/2017 Weight: 58.9 kg Height/Length: 68 in. BMI: 19.7 ALLERGIES: Penicillins The patient's Home Medications are listed below: NONE. The source(s) of the original Home Medication information: Not obtained. The following Medications were given to the patient in the Emergency Department: GI Cocktail [PO] PO 50 mL, administered: 02/04/2017 11:45:00 AM The following Medications were prescribed to the patient: Hydrocodone/APAP 5mg / 325mg: take 1 orally every 6 hours as needed for pain. Dispense ten (10). No refill. -- Jacob Bernardo MD Carafate 1g in 30cc water slurry ac, hs # 40. -- Jacob Bernardo MD Robaxin 750 mg: Take 2 orally every 6 hours as needed for muscle spasm. Dispense thirty (30). No refills. Substitution is permissible. -- Jacob Bernardo MD Prilosec 40 mg capsules: take 1 capsule orally every day for 10 days. Dispense ten (10). No refill. Substitution is permissible. -- Jacob Bernardo MD
--- NOTE | 2017-02-05 21:25 | ED MAR SUMMARY ---
..... Medication Administration Record [facility] [address] [place] [address] Patient: ERYN HERBERT Visit ID: [id number] 72y, M Weight: 58.9 kg Height/Length: 68 in BMI: 19.7 ALLERGIES: Penicillins Given 11:45 02/04/2017 Ines Luciano ROmero Medication Administered: GI COCKTAIL [PO] (MAGNESIUM-ALUMINUM), Dose: 50 mL PO. Medication Ordered: GI Cocktail WHITE PO 50 mL (NOW).
--- NOTE | 2017-02-05 21:25 | ED MED RECONCILIATION SUMMARY ---
Patient: ERYN HERBERT Medication Reconciliation Report [facility] VisitID: [id number] [address] [place] [address] 72y, M Registration Date/Time: 02/04/2017 Weight: 58.9 kg Height/Length: 68 in. BMI: 19.7 ALLERGIES: Penicillins The patient's Home Medications are listed below: NONE. The source(s) of the original Home Medication information: Not obtained. The following Medications were given to the patient in the Emergency Department: GI Cocktail [PO] PO 50 mL, administered: 02/04/2017 11:45:00 AM The following Medications were prescribed to the patient: Hydrocodone/APAP 5mg / 325mg: take 1 orally every 6 hours as needed for pain. Dispense ten (10). No refill. -- Jacob Bernardo MD Carafate 1g in 30cc water slurry ac, hs # 40. -- Jacob Bernardo MD Robaxin 750 mg: Take 2 orally every 6 hours as needed for muscle spasm. Dispense thirty (30). No refills. Substitution is permissible. -- Jacob Bernardo MD Prilosec 40 mg capsules: take 1 capsule orally every day for 10 days. Dispense ten (10). No refill. Substitution is permissible. -- Jacob Bernardo MD
--- NOTE | 2017-02-05 21:25 | ED DISCHARGE INSTRUCTIONS ---
Patient: ERYN HERBERT General Instructions [facility] VisitID: [id number] [place] [address] 72y, M Registration Date/Time: 02/04/2017 Atypical chest pain .12 lead EKG performed. Nodules in the right upper lobe. INSTRUCTIONS No strenuous activity. Rest. Avoid stimulants (such as cigarettes, coffee, cold medicines, sinus medicines, street drugs). Warnings: Further evaluation is necessary. GENERAL WARNINGS: Return or contact your physician immediately if your condition worsens or changes unexpectedly, if not improving as expected, or if other problems arise. Prescription Medications: Hydrocodone/APAP 5mg / 325mg: take 1 orally every 6 hours as needed for pain. Dispense ten (10). No refill. Robaxin 750 mg: Take 2 orally every 6 hours as needed for muscle spasm. Dispense thirty (30). No refills. Substitution is permissible. Prilosec 40 mg capsules: take 1 capsule orally every day for 10 days. Dispense ten (10). No refill. Substitution is permissible. Carafate 1g in 30cc water slurry ac, hs # 40. Follow-up: Follow up with your doctor in one week. Call for an appointment. Reason for referral: Lung nodules and CP. Understanding of the discharge instructions verbalized by patient and family. ADDITIONAL INFORMATION Chest Pain, Noncardiac Based on your visit today, the exact cause of your chest pain is not certain. Your condition does not seem serious and your pain does not appear to be coming from your heart. However, sometimes the signs of a serious problem take more time to appear. Therefore, please watch for the warning signs listed below. Home Care: Rest today and avoid strenuous activity. Take any prescribed medicine as directed. Follow Up with your doctor or this facility as instructed or if you do not start to feel better within 24 hours. Get Prompt Medical Attention if any of the following occur: A change in the type of pain: if it feels different, becomes more severe, lasts longer, or begins to spread into your shoulder, arm, neck, jaw or back Shortness of breath or increased pain with breathing Cough with dark colored sputum (phlegm) or blood Weakness, dizziness, or fainting Fever of 100.4F (38C) or higher, or as directed by your healthcare provider Swelling, pain or redness in one leg Hydrocodone Bitartrate, Acetaminophen Oral tablet What is this medicine? ACETAMINOPHEN; HYDROCODONE (a set a JAYLA vitaly fen; david droe KOJordan done) is a pain reliever. It is used to treat mild to moderate pain. How should I use this medicine? Take this medicine by mouth. Swallow it with a full glass of water. Follow the directions on the prescription label. If the medicine upsets your stomach, take the medicine with food or milk. Do not take more than you are told to take. Talk to your cad engineer regarding the use of this medicine in children. This medicine is not approved for use in children. What side effects may I notice from receiving this medicine? Side effects that you should report to your doctor or health child day care center worker as soon as possible: allergic reactions like skin rash, itching or hives, swelling of the face, lips, or tongue breathing problems confusion feeling faint or lightheaded, falls stomach pain yellowing of the eyes or skin Side effects that usually do not require medical attention (report to your doctor or health child day care center worker if they continue or are bothersome): nausea, vomiting stomach upset What may interact with this medicine? alcohol antihistamines isoniazid medicines for depression, anxiety, or psychotic disturbances medicines for sleep muscle relaxants naltrexone narcotic medicines (opiates) for pain phenobarbital ritonavir tramadol What if I miss a dose? If you miss a dose, take it as soon as you can. If it is almost time for your next dose, take only that dose. Do not take double or extra doses. Where should I keep my medicine? Keep out of the reach of children. This medicine can be abused. Keep your medicine in a safe place to protect it from theft. Do not share this medicine with anyone. Selling or giving away this medicine is dangerous and against the law. Store at room temperature between 15 and 30 degrees C (59 and 86 degrees F). Protect from light. Keep container tightly closed. Throw away any unused medicine after the expiration date. Discard unused medicine and used packaging carefully. Pets and children can be harmed if they find used or lost packages. What should I tell my health care provider before I take this medicine? They need to know if you have any of these conditions: brain tumor Crohn's disease, inflammatory bowel disease, or ulcerative colitis drink more than 3 alcohol-containing drinks per day drug abuse or addiction head injury heart or circulation problems kidney disease or problems going to the bathroom liver disease lung disease, asthma, or breathing problems an unusual or allergic reaction to acetaminophen, hydrocodone, other opioid analgesics, other medicines, foods, dyes, or preservatives or trying to get breast-feeding What should I watch for while using this medicine? Tell your doctor or health child day care center worker if your pain does not go away, if it gets worse, or if you have new or a different type of pain. You may develop tolerance to the medicine. Tolerance means that you will need a higher dose of the medicine for pain relief. Tolerance is normal and is expected if you take the medicine for a long time. Do not suddenly stop taking your medicine because you may develop a severe reaction. Your body becomes used to the medicine. This does NOT mean you are addicted. Addiction is a behavior related to getting and using a drug for a non-medical reason. If you have pain, you have a medical reason to take pain medicine. Your doctor will tell you how much medicine to take. If your doctor wants you to stop the medicine, the dose will be slowly lowered over time to avoid any side effects. You may get drowsy or dizzy when you first start taking the medicine or change doses. Do not drive, use machinery, or do anything that may be dangerous until you know how the medicine affects you. Stand or sit up slowly. There are different types of narcotic medicines (opiates) for pain. If you take more than one type at the same time, you may have more side effects. Give your health care provider a list of all medicines you use. Your doctor will tell you how much medicine to take. Do not take more medicine than directed. Call emergency for help if you have problems breathing. The medicine will cause constipation. Try to have a bowel movement at least every 2 to 3 days. If you do not have a bowel movement for 3 days, call your doctor or health child day care center worker. Too much acetaminophen can be very dangerous. Do not take Tylenol (acetaminophen) or medicines that contain acetaminophen with this medicine. Many non-prescription medicines contain acetaminophen. Always read the labels carefully. Omeprazole Magnesium Gastro-resistant tablet What is this medicine? OMEPRAZOLE (oh ME pray zol) prevents the production of acid in the stomach. It is used to treat the symptoms of heartburn. You can buy this medicine without a prescription. This product is not for long-term use, unless otherwise directed by your doctor or health child day care center worker. How should I use this medicine? Take this medicine by mouth. Follow the directions on the product label. If you are taking this medicine without a prescription, take one tablet every day. Do not use for longer than 14 days or repeat a course of treatment more often than every 4 months unless directed by a doctor or healthcare professional. Take your dose at regular intervals every 24 hours. Swallow the tablet whole with a drink of water. Do not crush, break or chew. This medicine works best if taken on an empty stomach 30 minutes before breakfast. If you are using this medicine with the prescription of your doctor or healthcare professional, follow the directions you were given. Do not take your medicine more often than directed. Talk to your cad engineer regarding the use of this medicine in children. Special care may be needed. What side effects may I notice from receiving this medicine? Side effects that you should report to your doctor or health child day care center worker as soon as possible: allergic reactions like skin rash, itching or hives, swelling of the face, lips, or tongue bone, muscle or joint pain breathing problems chest pain or chest tightness dark yellow or brown urine diarrhea dizziness fast, irregular heartbeat feeling faint or lightheaded fever or sore throat muscle spasm palpitations redness, blistering, peeling or loosening of the skin, including inside the mouth seizures tremors unusual bleeding or bruising unusually weak or tired yellowing of the eyes or skin Side effects that usually do not require medical attention (Report these to your doctor or health child day care center worker if they continue or are bothersome.): constipation dry mouth headache loose stools nausea What may interact with this medicine? Do not take this medicine with any of the following medications: atazanavir clopidogrel nelfinavir This medicine may also interact with the following medications: ampicillin certain medicines for anxiety or sleep certain medicines that treat or prevent blood clots like warfarin cyclosporine diazepam digoxin disulfiram iron salts phenytoin prescription medicine for fungal or yeast infection like itraconazole, ketoconazole, voriconazole saquinavir tacrolimus What if I miss a dose? If you miss a dose, take it as soon as you can. If it is almost time for your next dose, take only that dose. Do not take double or extra doses. Where should I keep my medicine? Keep out of the reach of children. Store at room temperature between 20 and 25 degrees C (68 and 77 degrees F). Protect from light and moisture. Throw away any unused medicine after the expiration date. What should I tell my health care provider before I take this medicine? They need to know if you have any of these conditions: black or bloody stools chest pain difficulty swallowing have had heartburn for over 3 months have heartburn with dizziness, lightheadedness or sweating liver disease stomach pain unexplained weight loss vomiting with blood wheezing an unusual or allergic reaction to omeprazole, other medicines, foods, dyes, or preservatives or trying to get breast-feeding What should I watch for while using this medicine? It can take several days before your heartburn gets better. Check with your doctor or health child day care center worker if your condition does not start to get better, or if it gets worse. Do not treat diarrhea with over the counter products. Contact your doctor if you have diarrhea that lasts more than 2 days or if it is severe and watery. Do not treat yourself for heartburn with this medicine for more than 14 days in a row. You should only use this medicine for a 2-week treatment period once every 4 months. If your symptoms return shortly after your therapy is complete, or within the 4 month time frame, call your doctor or health child day care center worker. You have been given the following additional information: Chest Pain, Noncardiac Hydrocodone Bitartrate, Acetaminophen Oral tablet Omeprazole Magnesium Gastro-resistant tablet No strenuous activity. Rest. (Electronically signed by Jacob Bernardo MD 02/05/2017 21:25)
== END 2017-02-04 14:05 | disposition home or self-care (01) ==
LOC: ED SRH 10:45
DX: R07.89 Other chest pain (principal); R91.1 Solitary pulmonary nodule; J44.9 Chronic obstructive pulmonary disease, unspecified; F17.210 Nicotine dependence, cigarettes, uncomplicated; Z88.0 Allergy status to penicillin
CPT/HCPCS: 90100; 90616; 91556; 91585; 92235; 92530; 92610; 92720; 95059; 95150